=== PATIENT | female | born 1980 | race Caucasian/White ===

== ENCOUNTER 2024-02-13 14:58 | Emergency (ER) | payer OTHER, SELFPAY ==
[2024-02-13 15:29] VITALS: BP 133/88
[2024-02-13 15:49] LABS: % Basophils 0.5 % (0-2); % Eosinophils 1.3 % (0-6); % Immature Granulocytes 0.2 % (0-0.5); % Lymphocytes 37.8 % (20.5-51.1); % Monocytes 6.4 % (1.7-9.3); % Neutrophils 53.8 % (42.2-75.2); Absolute Eosinophils 0.1 10^3/uL (0-0.7); Absolute Lymphocytes 2.4 10^3/uL (1.2-3.4); Absolute Monocytes 0.4 10^3/uL (0.1-0.6); Absolute Neutrophils 3.4 10^3/uL (1.4-6.5); Hematocrit 40.1 % (37.0-47.0); Mean Corp Hgb Conc. 32.4 g/dL (33.0-37.0); Mean Corpuscular Hgb 27.6 pg (27.0-31.0); Mean Corpuscular Volume 85.1 fL (81.0-99.0); Nucleated Red Blood Cells % 0 %; Platelet Count 273 10^3/uL (130-400); Red Blood Cell Count 4.71 10^6/uL (4.20-5.40); Red Cell Dist. Width 14.1 % (11.5-14.5); White Blood Cell Count 6.3 10^3/uL (4.8-10.8)
[2024-02-13 16:06] LABS: ALT (SGPT) 18 U/L (0-35); AST (SGOT) 23 U/L (14-36); Albumin 4.7 g/dl (3.5-5.0); Alkaline Phosphatase 49 U/L (38-126); Blood Urea Nitrogen 11 mg/dl (7-17); Calcium 9.4 mg/dl (8.4-10.2); Carbon Dioxide 18 mmol/L (22-30); Chloride 110 mmol/L (98-107); Glucose 104 mg/dl (70-99); Potassium 4.1 mmol/L (3.5-5.1); Sodium 140 mmol/L (135-145); Total Bilirubin 1.2 mg/dl (0.2-1.3); Total Protein 7.6 g/dl (6.3-8.2); eGFR > 60.00
[2024-02-13 16:14] LABS: Troponin I < 0.012 ng/ml
[2024-02-13 16:36] LABS: TSH Reflex To Free T4 2.91 uIU/ml (0.47-4.68)
[2024-02-13 17:31] VITALS: BP 121/86
[2024-02-13 20:30] LABS: D-Dimer < 0.27 ug/mlFEU (0.00-0.50)
--- NOTE | 2024-02-13 20:49 | ED.GENMED ---
History of Present Illness
General
Chief Complaint: Chest Pain
Time Seen by Provider: 02/13/24 19:13
History of Present Illness
History of Present Illness:
43-year-old female with history of palpitations presenting to the emergency department for dizziness and chest pain. Patient reports she was at work today and started to feel acutely dizzy, described as spinning. She then started to have
left-sided chest pain and palpitations but was not sure if she was having anxiety attack. Denies any recent fever or illness. Denies any known coronary history or family history of heart disease. Denies any difficulty breathing. She is on OCPs,
however denies any history of blood clots, recent surgery or recent travel. Her symptoms have overall improved. Dizziness is also subsided. Denies additional acute medical complaints.
Phy Exam
Physical Exam
Physical Exam:
General: Well-appearing, no clinical signs of dehydration, nontoxic and in no acute distress
HEENT: protecting airway
Neck: appears supple
CV: Normal heart rate, regular rhythm
Resp: No accessory muscle use, no increased work of breathing, lungs clear to auscultation bilaterally
Abd: Soft and non-distended, no tenderness to palpation, normal bowel sounds
Extremities: No deformities, no swelling
Neuro: alert, no focal neurologic deficit
: deferred
Rectal: deferred
Psych: Normal affect
Skin: Intact
Scores
Heart Score for Chest Pain Patients
STEMI patient?: No
History: Slightly or Non-Suspicious
ECG: Normal
Age: </= 45 years
Risk Factors: No Risk Factors
Troponin: </= Normal Limit
Heart Score for Chest Pain Patients: 0
Heart Score Risk: 2.5% MACE over next 6 weeks
Course
Orders/Labs/Results
Orders:
Orders
02/13/24 14:59
EKG [Electrocardiogram (*1)] Urgent
Reason for Study: Chest Pain
EKG- Treatment ONCE
02/13/24 15:42
Complete Blood Count/With Diff Urgent
Comprehensive Metabolic Panel Urgent
TSH Reflex To Free T4 Urgent
Troponin I Urgent
02/13/24 20:02
D-Dimer Urgent
Abnormal Lab Results
02/13/24
15:42
MCHC 32.4 L g/dL
(33.0-37.0)
Chloride 110 H mmol/L
(98-107)
Carbon Dioxide 18 L mmol/L
(22-30)
Glucose 104 H mg/dl
(70-99)
02/13/24 15:42
02/13/24 15:42
Vital Signs
Initial and Last Documented VS:
Initial Vital Signs
Temp Pulse Resp BP Pulse Ox
97.5 F 71 16 133/88 100
02/13/24 15:29 02/13/24 15:29 02/13/24 15:29 02/13/24 15:29 02/13/24 15:29
Last Documented Vital Signs
Temp Pulse Resp BP Pulse Ox
97.5 F 77 18 129/91 98
02/13/24 17:31 02/13/24 21:11 02/13/24 21:11 02/13/24 21:11 02/13/24 17:31
MDM/Problems Addressed
MDM/Problems Addressed:
43-year-old female without significant past medical history presenting for episode of dizziness and chest pain which is since resolved. Vital signs on arrival are normal.
On exam patient is currently asymptomatic, denies any present chest pain or dizziness. EKG obtained on arrival, does show an incomplete right bundle branch block, no prior for comparison, however no significant sign of acute ischemia. No
significant coronary risk factors without present concern for ACS. Patient had laboratory analysis prior to my assessment, undetectable troponin. At this time feel patient is low risk by heart score. Normal TSH, without concern for hyper or
hypothyroidism. No focal neurologic deficits without concern for central neurologic process as etiology of dizziness. Possible preceding vertigo, noted the dizziness as spinning sensation. Do suspect possible anxiety component. Cannot safely
satisfy PERC rule, OCP use, will add on D-dimer.
20:50 - Dimer is negative and patient remains asymptomatic. At this time feel stable for discharge, however with interval follow-up with cardiology. Will provide information. Strict return precautions indicated patient verbalized understanding
*EKG
Interpreted by ED Provider?: Yes
EKG Intrepretation Date: 02/13/24
EKG Intrepretation Time: 20:51
Interpretation: normal
Comparison EKG: no comparison EKG present
Heart Rate: 87
Rate: normal
Rhythm: sinus
[place]: left axis deviation
Interval: normal interval
QRS Pattern: right bundle branch block
Ischemia: no ischemia
*Critical Care Note
Total Time (30-74mins, 75-104mins- exclusive of procedures): Not Applicable
ED Attending Note
-
Portions of this chart may have been created with voice recognition software.� Occasional wrong word or��sound alike� substitutions may have occurred due to the inherent limitations of voice recognition software.
Discharge Plan
Departure
Patient Disposition: Home (Routine Discharge)
Date of Disposition: 02/13/24
Time of Disposition: 20:53
Patient with high blood pressure during this ER visit?: No
Condition: Good
Discharge Problem:
Chest pain, Dizziness
Instructions: Chest Pain
Referrals:
Ramo Sanchez MD [Active] -
Activity Restrictions/Additional Instructions:
You were seen in the emergency department for chest pain
You were found to have normal vital signs, laboratory analysis, EKG. Please follow-up with cardiology if symptoms are persisting.
Please follow-up closely with your primary care physician.
Return to the emergency department for any worsening of your symptoms, or any development of chest pain, difficulty breathing, abdominal pain with persistent vomiting and inability to tolerate food or liquid by mouth (concern for dehydration),
weakness, headache or confusion, fever greater than 100.4, or any additional symptoms that are concerning to you.
Thank you for choosing [facility].
Interventions
Interventions:
*Risk Screen - Suicide Last Done: 02/13/24 15:29
*General Assessment Last Done: 02/13/24 15:29
*Neglect/Abuse Screening Last Done: 02/13/24 15:29
*Nursing Disposition Last Done: 02/13/24 21:16
ED- Cardiac Assessment Last Done: 02/13/24 20:43
Discharge Date and Time
Discharge Date/Time: 02/13/24 21:16
Print Language: [id number]
[2024-02-13 21:11] VITALS: BP 129/91
== END 2024-02-13 21:16 | disposition home or self-care (01) ==
LOC: EMR 14:58
PROVIDERS: Emergency Medicine; EMERGENCY PHYSICIAN Student in an Organized Health Care Education/Training Program; FAMILY PHYSICIAN Family Medicine
DX: R07.89 Other chest pain (principal); R42 Dizziness and giddiness; R00.2 Palpitations
CPT/HCPCS: 99283; 80053; 84443; 84484; 85025; 85379; 93005